=== PATIENT | male | born 1955 | race Caucasian/White ===

== ENCOUNTER 2021-02-24 23:38 | Inpatient (IN) | payer MEDICARE, OTHER ==
[~2021-02-24] VITALS: Ht 175.3 cm; Wt 99.1 kg
[2021-02-25 00:47] VITALS: BP 187/96
[2021-02-25] MEDS ORDERED: MELO15TA24 PO (01:19)
[2021-02-25] MEDS ORDERED: ASPI-963 PO (01:20)
[2021-02-25] MEDS ORDERED: LISI-167 PO (01:20)
[2021-02-25] MEDS ORDERED: ATOR40TA PO (01:21)
[2021-02-25] MEDS ORDERED: GABA600T7 PO (01:22)
[2021-02-25] MEDS ORDERED: METF500T17 PO (01:26)
[2021-02-25] MEDS ORDERED: CHOL200040 PO (01:35)
[2021-02-25] MEDS ORDERED: UBID150C PO (01:36)
[2021-02-25] MEDS ORDERED: ZINC220T2 PO (01:36)
[2021-02-25] MEDS ORDERED: VITA1TAB67 PO (01:37)
[2021-02-25] MEDS ORDERED: GLUCAGON 1 MG IM PRN (02:00)
[2021-02-25] MEDS: INSULIN LISPRO 100 UNITS/ML, PEN SQ-INSULIN SCH ×5 (02:00→23:17)
[2021-02-25] MEDS ORDERED: ONDANSETRON 2MG/ML, 2ML IVPush PRN ×2 (02:00→17:00)
[2021-02-25] MEDS ORDERED: POLYETHYLENE GLYCOL 17 GM PACKET PO PRN (02:00)
[2021-02-25] MEDS ORDERED: MELATONIN 5 MG TABLET PO PRN (02:00)
[2021-02-25] MEDS ORDERED: DEXTROSE 4 GM TAB.CHEW PO PRN (02:00)
[2021-02-25] MEDS: LACTATED RINGERS 1,000 ML IV SCH (02:00)
[2021-02-25] MEDS ORDERED: DEXTROSE 50%, 50ML SYRINGE IVPush PRN (02:00)
[2021-02-25] MEDS ORDERED: HYDROmorphone 2 MG/ML, 1ML IVPush PRN (02:00)
[2021-02-25] MEDS: OXYcodone IR 5MG TABLET PO PRN ×2 (02:05→07:27)
[2021-02-25] MEDS: LABETALOL 5MG/ML, 20ML IVPush PRN (02:06)
[2021-02-25] MEDS: ACETAMINOPHEN 325 MG TABLET PO SCH ×6 (02:06→22:00)
[2021-02-25 02:44] VITALS: BP 167/83
[2021-02-25 05:14] LABS: BASOPHILS % (AUTO) 1 % (0-1); EOSINOPHILS % (AUTO) 3 % (1-7); LYMPHOCYTES % (AUTO) 13 % (22-44); MEAN CORPUSCULAR HEMOGLOBIN 28.6 pg (27.5-34.5); MEAN CORPUSCULAR HGB CONC 34.1 g/dL (33.2-36.2); MONOCYTES % (AUTO) 9 % (2-9); NEUTROPHILS % (AUTO) 74 % (42-75); PLATELET COUNT 172 x10^3/uL (130-400); RED BLOOD COUNT 5.01 x10^6/uL (4.38-5.82); RED CELL DISTRIBUTION WIDTH 17.5 % (9.4-14.8)
[2021-02-25 05:26] LABS: ANION GAP 8 mmol/L (5-15); CALCIUM 8.4 mg/dL (8.5-10.1); CHLORIDE 105 mmol/L (98-107); CREATININE 3.09 mg/dL (0.7-1.3)
[2021-02-25] MEDS: CEFTRIAXONE 2 GM in DEXTROSE 5% 50 ML IVPB SCH (06:17)
[2021-02-25 06:22] VITALS: BP 156/78
[2021-02-25] MEDS: SODIUM CHLORIDE FLUSH 10ML SYR IVF SCH ×2 (09:00→22:23)
[2021-02-25 13:20] VITALS: BP 170/94
[2021-02-25] MEDS ORDERED: OMNIPAQUE 350 MG/ML, 50 ML BOTTLE ONE ×2 (14:00→16:11)
[2021-02-25] MEDS ORDERED: CHLORHEXIDINE 15 ML UDC PO ONE (14:00)
[2021-02-25] MEDS ORDERED: FENTANYL PF 100 MCG/2ML IV PRN ×2 (14:30→17:00)
[2021-02-25] MEDS ORDERED: MIDAZOLAM 1 MG/ML, 2ML IV PRN ×2 (14:30→17:00)
[2021-02-25] MEDS ORDERED: OXYcodone 5 MG/5 ML ORAL.SOL UDC PO PRN ×2 (14:30→17:00)
[2021-02-25] MEDS ORDERED: MEPERIDINE/PF 25MG/0.5ML IVPush PRN ×2 (14:30→17:00)
[2021-02-25] MEDS ORDERED: ACETAMINOPHEN 325 MG TABLET PO PRN ×2 (14:30→17:00)
[2021-02-25] MEDS ORDERED: HYDROmorphone 1 MG/ML, 1ML INJ IVPush PRN ×2 (14:30→17:00)
[2021-02-25] MEDS ORDERED: LABETALOL 5MG/ML, 20ML IV PRN ×2 (14:30→17:00)
[2021-02-25] MEDS ORDERED: ALBUTEROL SULFATE 2.5 MG/3 ML NPPB PRN ×2 (14:30→17:00)
[2021-02-25] MEDS ORDERED: PROMETHAZINE 25 MG/ML, 1ML IVPush PRN ×2 (14:30→17:00)
[2021-02-25] MEDS ORDERED: MIDAZOLAM 1 MG/ML, 2ML ONE (14:56)
[2021-02-25] MEDS ORDERED: FENTANYL PF 100 MCG/2ML ONE ×2 (14:56→17:33)
[2021-02-25] MEDS ORDERED: ROCURONIUM 10MG/ML,5ML ONE (16:02)
[2021-02-25] MEDS ORDERED: PROPOFOL 10 MG/ML, 20ML ONE (16:02)
[2021-02-25] MEDS ORDERED: DEXAMETHASONE 4 MG/ML, 1ML ONE (16:02)
[2021-02-25] MEDS ORDERED: SUCCINYLCHOLINE 20 MG/ML, 10ML ONE (16:02)
[2021-02-25] MEDS ORDERED: LABETALOL 5MG/ML, 20ML ONE (16:02)
[2021-02-25] MEDS ORDERED: ONDANSETRON 2MG/ML, 2ML ONE (16:02)
[2021-02-25] MEDS ORDERED: LORazepam 2 MG/ML, 1ML IVPush PRN (17:00)
[2021-02-25] MEDS ORDERED: DIAZEPAM 5 MG/ML, 2ML IVPush PRN (17:00)
[2021-02-25] MEDS ORDERED: hydrALAzine 20 MG/ML, 1ML IV PRN (17:00)
[2021-02-25] MEDS ORDERED: PROMETHAZINE 12.5 MG SUPP PR PRN (17:00)
[2021-02-25] MEDS ORDERED: EPHEDRINE 50 MG/ML, 1ML IVPush PRN (17:00)
[2021-02-25] MEDS ORDERED: DIPHENHYDRAMINE 50 MG/ML, 1ML IVPush PRN ×2 (17:00)
[2021-02-25] MEDS ORDERED: hydrALAzine 20 MG/ML, 1ML ONE (17:53)
[2021-02-25 18:44] VITALS: BP 155/76
[2021-02-25] MEDS ORDERED: ACETAMINOPHEN 500 MG TABLET ONE (22:10)
[2021-02-25] MEDS: ATORVASTATIN 40 MG TABLET PO SCH (22:23)
[2021-02-26 00:36] VITALS: BP 158/73
[2021-02-26] MEDS: OXYcodone IR 5MG TABLET PO PRN ×2 (00:50→23:20)
[2021-02-26] MEDS: ACETAMINOPHEN 325 MG TABLET PO SCH ×5 (02:00→17:14)
[2021-02-26] MEDS ORDERED: ACETAMINOPHEN 500 MG TABLET ONE ×2 (02:27→06:01)
[2021-02-26] MEDS: LACTATED RINGERS 1,000 ML IV SCH ×2 (02:35→17:14)
[2021-02-26 03:32] VITALS: BP 157/71
[2021-02-26] MEDS: CEFTRIAXONE 2 GM in DEXTROSE 5% 50 ML IVPB SCH (06:15)
[2021-02-26] MEDS: INSULIN LISPRO 100 UNITS/ML, PEN SQ-INSULIN SCH ×4 (07:00→20:59)
[2021-02-26 07:40] VITALS: BP 152/79
[2021-02-26] MEDS: SODIUM CHLORIDE FLUSH 10ML SYR IVF SCH ×2 (07:59→21:08)
[2021-02-26] MEDS: ASPIRIN 81 MG TABLET EC PO SCH (07:59)
[2021-02-26] MEDS ORDERED: MIDAZOLAM 1 MG/ML, 5ML ONE (08:22)
[2021-02-26] MEDS ORDERED: FLUMAZENIL 0.1 MG/1 ML, 5ML ONE (08:23)
[2021-02-26] MEDS ORDERED: FENTANYL PF 100 MCG/2ML ONE ×2 (08:23)
[2021-02-26] MEDS ORDERED: NALOXONE 1 MG/ML, 2ML ONE (08:23)
[2021-02-26] MEDS ORDERED: LIDOCAINE 1%, 10ML ONE (08:29)
[2021-02-26] MEDS ORDERED: VISIPAQUE 270 MG/ML, 50ML BOTTLE ONE (09:41)
[2021-02-26 10:08] LABS: BASOPHILS % (AUTO) 0 % (0-1); EOSINOPHILS % (AUTO) 0 % (1-7); LYMPHOCYTES % (AUTO) 6 % (22-44); MEAN CORPUSCULAR HEMOGLOBIN 28.4 pg (27.5-34.5); MEAN CORPUSCULAR HGB CONC 33.6 g/dL (33.2-36.2); MEAN PLATELET VOLUME 7.9 fL (7.4-10.4); MONOCYTES % (AUTO) 4 % (2-9); NEUTROPHILS % (AUTO) 90 % (42-75); PLATELET COUNT 181 x10^3/uL (130-400); RED BLOOD COUNT 4.92 x10^6/uL (4.38-5.82); RED CELL DISTRIBUTION WIDTH 17.3 % (9.4-14.8)
[2021-02-26 10:26] LABS: ANION GAP 8 mmol/L (5-15); CALCIUM 8.7 mg/dL (8.5-10.1); CHLORIDE 107 mmol/L (98-107); CREATININE 2.07 mg/dL (0.7-1.3)
[2021-02-26 14:05] VITALS: BP 164/75
[2021-02-26] MEDS: TAMSULOSIN 0.4 MG CAP.ER.24H PO SCH (17:17)
[2021-02-26 20:21] VITALS: BP 168/73
[2021-02-26] MEDS: ATORVASTATIN 40 MG TABLET PO SCH (21:08)
[2021-02-26] MEDS: ACETAMINOPHEN 500 MG TABLET PO SCH (21:08)
[2021-02-27 01:40] VITALS: BP 162/72
[2021-02-27] MEDS: ACETAMINOPHEN 500 MG TABLET PO SCH ×6 (01:44→21:59)
[2021-02-27] MEDS: OXYcodone IR 5MG TABLET PO PRN (05:06)
[2021-02-27 05:11] LABS: ALBUMIN 2.6 g/dL (3.4-5.0); ANION GAP 9 mmol/L (5-15); CALCIUM 8.6 mg/dL (8.5-10.1); CHLORIDE 106 mmol/L (98-107)
[2021-02-27 05:12] LABS: BASOPHILS % (AUTO) 1 % (0-1); EOSINOPHILS % (AUTO) 1 % (1-7); LYMPHOCYTES % (AUTO) 23 % (22-44); MEAN CORPUSCULAR HEMOGLOBIN 28.6 pg (27.5-34.5); MEAN CORPUSCULAR HGB CONC 33.8 g/dL (33.2-36.2); MEAN PLATELET VOLUME 8.2 fL (7.4-10.4); MONOCYTES % (AUTO) 7 % (2-9); NEUTROPHILS % (AUTO) 69 % (42-75); PLATELET COUNT 191 x10^3/uL (130-400); RED CELL DISTRIBUTION WIDTH 17.7 % (9.4-14.8)
[2021-02-27 05:14] LABS: ALANINE AMINOTRANSFERASE 22 U/L (12-78); ALKALINE PHOSPHATASE 49 U/L (45-117); BILIRUBIN,TOTAL 0.8 mg/dL (0.2-1.0); CREATININE 1.79 mg/dL (0.7-1.3); TOTAL PROTEIN 6.1 g/dL (6.4-8.2)
[2021-02-27] MEDS: CEFTRIAXONE 2 GM in DEXTROSE 5% 50 ML IVPB SCH (06:11)
[2021-02-27] MEDS: INSULIN LISPRO 100 UNITS/ML, PEN SQ-INSULIN SCH ×4 (06:16→21:00)
[2021-02-27] MEDS: ASPIRIN 81 MG TABLET EC PO SCH (08:08)
[2021-02-27] MEDS: LACTATED RINGERS 1,000 ML IV SCH ×2 (08:08→21:20)
[2021-02-27] MEDS: SODIUM CHLORIDE FLUSH 10ML SYR IVF SCH ×2 (08:08→21:59)
[2021-02-27] MEDS: TAMSULOSIN 0.4 MG CAP.ER.24H PO SCH (08:08)
[2021-02-27 08:58] VITALS: BP 177/85
[2021-02-27] MEDS: LABETALOL 5MG/ML, 20ML IVPush PRN ×2 (09:09→16:08)
[2021-02-27] MEDS ORDERED: CEFD300C37 PO (11:52)
[2021-02-27] MEDS ORDERED: LISI20TA21 PO (11:52)
[2021-02-27] MEDS ORDERED: TAMS-11 PO (11:52)
[2021-02-27 14:39] VITALS: BP 193/80
[2021-02-27] MEDS ORDERED: hydrALAzine 20 MG/ML, 1ML IVPush PRN (15:00)
[2021-02-27] MEDS ORDERED: ENALAPRILAT 1.25 MG/ML, 2ML IVPush PRN (15:00)
[2021-02-27] MEDS ORDERED: LABETALOL 5MG/ML, 20ML IVPush PRN (15:00)
[2021-02-27] MEDS ORDERED: LISINOPRIL 10 MG TABLET PO SCH (15:00)
[2021-02-27 15:11] VITALS: BP 187/94
[2021-02-27 16:05] VITALS: BP 183/81
[2021-02-27 20:19] VITALS: BP 180/76
[2021-02-27] MEDS: ATORVASTATIN 40 MG TABLET PO SCH (21:59)
[2021-02-28] MEDS: OXYcodone IR 5MG TABLET PO PRN ×3 (01:30→06:13)
[2021-02-28] MEDS: ACETAMINOPHEN 500 MG TABLET PO SCH ×3 (01:30→09:02)
[2021-02-28 01:35] VITALS: BP 183/80
[2021-02-28] MEDS: INSULIN LISPRO 100 UNITS/ML, PEN SQ-INSULIN SCH ×2 (06:13→10:53)
[2021-02-28] MEDS ORDERED: CEFDINIR 300 MG CAPSULE PO SCH (07:00)
[2021-02-28 07:34] VITALS: BP 188/85
[2021-02-28 07:35] LABS: ALANINE AMINOTRANSFERASE 30 U/L (12-78); ANION GAP 10 mmol/L (5-15); BASOPHILS % (AUTO) 1 % (0-1); CALCIUM 9.5 mg/dL (8.5-10.1); CHLORIDE 105 mmol/L (98-107); CREATININE 1.56 mg/dL (0.7-1.3); EOSINOPHILS % (AUTO) 5 % (1-7); LYMPHOCYTES % (AUTO) 28 % (22-44); MEAN CORPUSCULAR HGB CONC 34.5 g/dL (33.2-36.2); MEAN PLATELET VOLUME 8.1 fL (7.4-10.4); MONOCYTES % (AUTO) 9 % (2-9); NEUTROPHILS % (AUTO) 57 % (42-75); PLATELET COUNT 223 x10^3/uL (130-400); RED BLOOD COUNT 5.23 x10^6/uL (4.38-5.82); RED CELL DISTRIBUTION WIDTH 17.7 % (9.4-14.8)
[2021-02-28 07:37] LABS: ALKALINE PHOSPHATASE 58 U/L (45-117); TOTAL PROTEIN 7.1 g/dL (6.4-8.2)
[2021-02-28] MEDS: TAMSULOSIN 0.4 MG CAP.ER.24H PO SCH (08:28)
[2021-02-28] MEDS: ASPIRIN 81 MG TABLET EC PO SCH (08:28)
[2021-02-28] MEDS: SODIUM CHLORIDE FLUSH 10ML SYR IVF SCH (08:29)
[2021-02-28] MEDS ORDERED: LISINOPRIL 20 MG TABLET PO SCH (09:00)
[2021-02-28 09:14] VITALS: BP 168/92
[2021-02-28] MEDS ORDERED: AMLO-150 PO (09:57)
[2021-02-28 10:38] VITALS: BP 165/96
[2021-02-28] MEDS: LACTATED RINGERS 1,000 ML IV SCH (10:39)
== END 2021-02-28 12:35 | disposition home or self-care (01) | DRG 661 ==
LOC: 4NE 02-25 00:40
PROVIDERS: ADMIT Internal Medicine; ATTEND Family Medicine
PROC: 0TF78ZZ Fragmentation in Left Ureter, Via Natural or Artificial Opening Endoscopic (ICD-10-PCS; 2021-02-25)
PROC: BT14ZZZ Fluoroscopy of Kidneys, Ureters and Bladder (ICD-10-PCS; 2021-02-25)
PROC: 0T778DZ Dilation of Left Ureter with Intraluminal Device, Via Natural or Artificial Opening Endoscopic (ICD-10-PCS; principal; 2021-02-25 14:30)
PROC: 0T763DZ Dilation of Right Ureter with Intraluminal Device, Percutaneous Approach (ICD-10-PCS; 2021-02-26)
DX: N13.6 Pyonephrosis (principal); E66.01 Morbid (severe) obesity due to excess calories; E11.65 Type 2 diabetes mellitus with hyperglycemia; N17.9 Acute kidney failure, unspecified; E78.5 Hyperlipidemia, unspecified; I10 Essential (primary) hypertension; I16.0 Hypertensive urgency; N02.9 Recurrent and persistent hematuria with unspecified morphologic changes; Z79.899 Other long term (current) drug therapy; Z68.32 Body mass index [BMI] 32.0-32.9, adult; Z85.528 Personal history of other malignant neoplasm of kidney; Z87.442 Personal history of urinary calculi
CPT/HCPCS: 36415; 50693; 74420; 76942; 80048; 80053; 82962; 83735; 85025; 99156; 99157; C1894; G0378; J0696; J1100; J1170; J2250; J2405; J2704; J3010; Q9966; Q9967; C1751; C1769; C2617; C2625; J0330; J0360; J1815; J2310; J7120

== ENCOUNTER 2021-03-17 11:26 | Day surgery (SDC) | payer MEDICARE, OTHER ==
[~2021-03-17] VITALS: Ht 171.4 cm; Wt 99.4 kg
[~2021-03-17 11:26] MED LIST: AMLO-150 PO; ASPI-963 PO; ATOR40TA PO; CEFD300C37 PO; CHOL200040 PO; GABA600T7 PO; LISI-167 PO; LISI20TA21 PO; MELO15TA24 PO; METF500T17 PO; TAMS-11 PO; UBID150C PO; VITA1TAB67 PO; ZINC220T2 PO
[2021-03-17] MEDS ORDERED: CHLORHEXIDINE 15 ML UDC PO ONE (12:30)
[2021-03-17] MEDS ORDERED: LACTATED RINGERS 1,000 ML IV SCH (12:30)
[2021-03-17] MEDS ORDERED: FENTANYL PF 100 MCG/2ML ONE (12:36)
[2021-03-17] MEDS ORDERED: MIDAZOLAM 1 MG/ML, 2ML ONE (12:36)
[2021-03-17 12:51] VITALS: BP 143/80
[2021-03-17] MEDS ORDERED: LISI-170 PO (12:59)
[2021-03-17] MEDS ORDERED: TAMS-11 PO (12:59)
[2021-03-17] MEDS ORDERED: CEFD300C37 PO (12:59)
[2021-03-17] MEDS ORDERED: AMLO-150 PO (12:59)
[2021-03-17] MEDS ORDERED: GABA600T7 PO (12:59)
[2021-03-17] MEDS ORDERED: OMNIPAQUE 350 MG/ML, 50 ML BOTTLE ONE (13:16)
[2021-03-17] MEDS ORDERED: DEXAMETHASONE 4 MG/ML, 1ML ONE (15:06)
[2021-03-17] MEDS ORDERED: CEFAZOLIN 1,000 MG ONE (15:06)
[2021-03-17] MEDS ORDERED: PROPOFOL 10 MG/ML, 20ML ONE (15:06)
[2021-03-17] MEDS ORDERED: ONDANSETRON 2MG/ML, 2ML ONE (15:06)
[2021-03-17] MEDS ORDERED: LIDOCAINE-MPF 2% ,5ML ONE (15:06)
[2021-03-17] MEDS ORDERED: OXYcodone/APAP 5/325MG TABLET PO PRN (15:30)
[2021-03-17] MEDS ORDERED: ONDANSETRON 2MG/ML, 2ML IV PRN (15:30)
[2021-03-17] MEDS ORDERED: KETOROLAC 30 MG/1 ML IV PRN (15:30)
== END 2021-03-17 16:42 | disposition home or self-care (01) ==
LOC: OUT 11:26
PROVIDERS: ATTEND Urology
DX: N13.2 Hydronephrosis with renal and ureteral calculous obstruction (principal); I10 Essential (primary) hypertension; E11.9 Type 2 diabetes mellitus without complications; E78.5 Hyperlipidemia, unspecified; J44.9 Chronic obstructive pulmonary disease, unspecified; F17.210 Nicotine dependence, cigarettes, uncomplicated; Z20.822 Contact with and (suspected) exposure to COVID-19; Z79.1 Long term (current) use of non-steroidal anti-inflammatories (NSAID); Z79.82 Long term (current) use of aspirin; Z79.84 Long term (current) use of oral hypoglycemic drugs; Z79.899 Other long term (current) drug therapy; Z87.442 Personal history of urinary calculi; Z88.8 Allergy status to other drugs, medicaments and biological substances
CPT/HCPCS: 52356; 74420; 82360; 82962; 87635; 88300; 93005; C1758; C1769; C2617; J0690; J1100; J2250; J2405; J2704; J3010; J7120; Q9967